=== PATIENT | female | born 1975 | race Caucasian/White ===

== ENCOUNTER 2025-02-04 20:37 | Emergency (ER) | payer BC, SELFPAY ==
[2025-02-04 20:50] VITALS: BP 136/98
[2025-02-04 21:09] LABS: Hematocrit 40.6 % (37.0-47.0); Hemoglobin 14.3 g/dL (12.0-16.0); Mean Corp Hgb Conc. 35.2 g/dL (33.0-37.0); Mean Corpuscular Volume 90.6 fL (81.0-99.0); Nucleated Red Blood Cells % 0 %; Platelet Count 356 10^3/uL (130-400); Red Cell Dist. Width 12.6 % (11.5-14.5)
[2025-02-04 21:32] LABS: ALT (SGPT) 26 U/L (0-35); AST (SGOT) 23 U/L (14-36); Albumin 4.5 g/dl (3.5-5.0); Alkaline Phosphatase 64 U/L (38-126); Blood Urea Nitrogen 10 mg/dl (7-17); Calcium 9.7 mg/dl (8.4-10.2); Carbon Dioxide 19 mmol/L (22-30); Chloride 112 mmol/L (98-107); Glucose 114 mg/dl (70-99); Potassium 3.6 mmol/L (3.5-5.1); Sodium 138 mmol/L (135-145); Total Protein 7.0 g/dl (6.3-8.2); eGFR > 60.00
[2025-02-04 23:44] VITALS: BP 149/100
[2025-02-04 23:49] VITALS: BMI 25.9
[2025-02-05 02:12] VITALS: BP 119/90
[2025-02-05 02:23] LABS: Urine Character Clear (Clear)
[2025-02-05 02:49] LABS: Urine Red Blood Cell None Seen /HPF (0-2); Urine White Cell None Seen /HPF (0-5)
[2025-02-05 03:44] VITALS: BP 119/81
--- NOTE | 2025-02-05 04:04 | ED.GENMED ---
History of Present Illness
General
Chief Complaint: Abdominal Pain
Source: patient
Time Seen by Provider: 02/04/25 23:57
Nursing documentation reviewed up to this point in time: agreed with
History of Present Illness
History of Present Illness:
Note:
CHIEF COMPLAINT(S)
Abdominal pain with nausea and vomiting.
HISTORY OF PRESENT ILLNESS
The patient is a 50-year-old female who presents with right lower quadrant abdominal pain. She reports that the pain started yesterday and was severe, stating she experienced nausea and vomited once. She describes the pain as intermittent and noted
that pressing on the area provided some relief, although releasing the pressure exacerbated the pain. She also indicated a preference for certain positions to alleviate the discomfort. There is no associated dysuria or vaginal bleeding, and she
denies any history of similar pain. The patient denies menstrual cramping and cannot be . She has a history of a tubal ligation and section postoperative course was unremarkable.
PAST SURGICAL HISTORY
Tubal ligation and section.
REVIEW OF SYSTEMS
- Gastrointestinal: Nausea and vomiting, right lower quadrant pain.
- Genitourinary: No dysuria, no vaginal bleeding.
PHYSICAL EXAM
General: Alert, no acute distress.
Skin: Warm, dry.
Head: Normocephalic, atraumatic.
Neck: Supple, trachea midline.
Eye, Ears, Nose, Mouth, and Throat: Oral mucosa moist.
Cardiovascular: Normal peripheral perfusion, no edema.
Respiratory: Respirations are non-labored.
Gastrointestinal: Abdomen tender in the right lower quadrant.
Back: Normal range of motion, normal alignment.
Musculoskeletal: Normal range of motion, normal strength.
Neurological: Alert and oriented to person, place, time, and situation, no focal neurological deficit observed.
Psychiatric: Cooperative, appropriate mood & affect.
PLAN
The plan includes performing a computed tomography (CT) scan of the abdomen to rule out appendicitis. If the CT scan findings are inconclusive, an ultrasound will be performed to evaluate for potential ovarian issues. A urine sample will be obtained
at the patients convenience, as it is not urgently required before the CT scan results.
DIFFERENTIAL DIAGNOSIS
The Differential Diagnosis includes, in no particular order and is not limited to:
1. Appendicitis
2. Ovarian cyst
3. Pelvic inflammatory disease
4. Ectopic
5. Diverticulitis
6. Gastroenteritis
7. Renal colic
8. Inguinal hernia
9. Endometriosis
10. Urinary tract infection
Disposition:
SUMMARY OF ENCOUNTER
30-year-old female presented with right lower quadrant abdominal pain. CT scan of the abdomen was performed and interpreted as negative for acute findings. An ultrasound was also performed and found to be negative. Urine analysis was negative.
Laboratory tests revealed a white blood cell count of 9.8. After evaluation and treatment, the patient reported feeling better.
DISPOSITION
Discharge.
ASSESSMENT
The patients symptoms were assessed, and with negative imaging and lab findings, her condition was deemed appropriate for discharge.
PLAN
The patient will be discharged as her symptoms have improved and there are no acute findings from the imaging and laboratory results.
INDEPENDENT REVIEW OF LABS AND INTERPRETATION OF TESTS
My independent review of the complete blood count (CBC) indicates a white blood cell count of 9.8.
MEDICAL DECISION MAKING
-Complexity of Data Reviewed:
DDx list includes:
1. Appendicitis
2. Ovarian cyst
3. Pelvic inflammatory disease
4. Ectopic
5. Diverticulitis
6. Gastroenteritis
7. Renal colic
8. Inguinal hernia
9. Endometriosis
10. Urinary tract infection
-Data:
Category 1:
- I independently interpreted CT imaging and ultrasound during the patients evaluation.
-Risk:
Consideration of Admission/Observation: Escalation of care including admission/observation was considered given the complexity and risk of the patients presenting complaint, exam findings, and/or their underlying comorbidities. However, ultimately,
I feel the patient is safe for outpatient management with close follow-up. Reasoning: Work-up is reassuring, does not reveal any acute life/organ-threatening processes, the patients symptoms are well controlled upon reevaluation, reexamination is
reassuring, vitals are stable, the patient agrees with discharge, reliable for follow-up.
DIAGNOSIS
- Abdominal pain, R10.9
- Leukocytosis (mild, non-specific finding), R16.8
Review of Systems
Review of Systems
Allergies reviewed?: Yes
All Other Systems: ROS reviewed and negative except as documented in HPI and ROS
Constitutional: Reports no symptoms
EENT: Reports no symptoms
Respiratory: Reports no symptoms
Cardiac: Reports no symptoms
ABD/GI: Reports abdominal pain
: Reports no symptoms
Musculoskeletal: Reports no symptoms
Skin: Reports no symptoms
Neurological: Reports no symptoms
Endocrine: Reports no symptoms
Hematologic/Lymphatic: Reports no symptoms
Psychiatric: Reports no symptoms
Phy Exam
Physical Exam
Physical Exam:
.
Course
Orders/Labs/Results
Orders:
Orders
02/04/25 21:02
Complete Blood Count/With Diff Urgent
Comprehensive Metabolic Panel Urgent
02/05/25 00:03
CT Abd/pelvis W Iv Cont Urgent
Comment:
Reason For Exam: rlq pain
02/05/25 02:12
US Pelvis W Transvag Combined Urgent
Reason For Exam: right pain
02/05/25 02:13
Urinalysis Reflex To Culture Urgent
Date Specimen was Collected: 02/05/25
Time Specimen was Collected: 01:59
Urine Microscopic Reflex Cult Urgent
Abnormal Lab Results
02/04/25 02/05/25
21:02 02:13
MCH 31.9 H pg
(27.0-31.0)
Absolute Lymphs (auto) 3.6 H 10^3/uL
(1.2-3.4)
Chloride 112 H mmol/L
(98-107)
Carbon Dioxide 19 L mmol/L
(22-30)
Glucose 114 H mg/dl
(70-99)
Urine Albumin (Reflex) 1+ A
(Neg - Trace)
02/04/25 21:02
02/04/25 21:02
Vital Signs
Initial and Last Documented VS:
Initial Vital Signs
Temp Pulse Resp BP Pulse Ox
98.1 F 84 20 136/98 96
02/04/25 20:50 02/04/25 20:50 02/04/25 20:50 02/04/25 20:50 02/04/25 20:50
Last Documented Vital Signs
Temp Pulse Resp BP Pulse Ox
97.6 F 70 18 119/81 98
02/04/25 23:44 02/05/25 03:44 02/05/25 03:44 02/05/25 03:44 02/05/25 04:04
*Radiology
Radiology exam reviewed: radiology read reviewed
*Pulse Oximetry
SaO2: 98
Oxygen Mode of Delivery: Room air
Patient hypoxic: no
*Critical Care Note
Total Time (30-74mins, 75-104mins- exclusive of procedures): Not Applicable
Update Note
Update Note:
Preliminary Radiology Report
[facility], [facility] - Phone
[facility]
NAME: MARCOS VASQUEZ
DATE OF EXAM: 02/05/2025
Patient No: [id number]
Physician: KENNETH^Terrance
Date of : 1975
Past Medical History (entered by Technologist):
Reason For Exam (entered by Technologist):
Other Notes (entered by Technologist):
Additional Information (per [facility]):
Pelvic ultrasound
IMPRESSION:
No active torsion.
The results were faxed/finalized only at 0340 ET. If you would like to discuss this case directly please call [phone] (extension [phone]). If you can't reach me at this number, do not leave a voicemail. Please call [phone] ext [phone] and ask for
the next available Radiologist.
Brittney Mi M.D.
This report has been electronically signed and verified by the Radiologist whose name is printed above.
ED Attending Note
-
Portions of this chart may have been created with voice recognition software.� Occasional wrong word or��sound alike� substitutions may have occurred due to the inherent limitations of voice recognition software.
Discharge Plan
Departure
Patient Disposition: Home (Routine Discharge)
Date of Disposition: 02/05/25
Time of Disposition: 04:16
Patient with high blood pressure during this ER visit?: Yes
Condition: Good
Discharge Problem:
Abdominal pain
Instructions: Abdominal Pain, BLOOD PRESSURE
Referrals:
[facility] [Outside]
UNKNOWN - PT DOES,NOT KNOW [Family Provider]
Activity Restrictions/Additional Instructions:
Thank You for choosing [facility].
It was a pleasure meeting you and taking part in your care. We hope for your continued healing and wellness.
Please read discharge instructions in their entirety. However, they are for general education and may not describe your exact diagnosis at discharge. Information on your ER visit and medical conditions were discussed with you along with appropriate
follow up information...
If indicated, please take your medications as instructed and indicated on discharge paperwork.
Please schedule a follow up appointment as directed. Call to schedule an appointment
Please return to the emergency department with ANY change in, persisting, or worsening of symptoms. If any of your symptoms do not improve, or persist, or become more severe within 6-12 hours, please return to the emergency department for further
care.
Please return to the emergency department if you develop a headache, neck pain/stiffness, fever greater than 100.4F, chest pain, shortness of breath, persistent nausea, vomiting, slurred speech, difficulty walking, numbness/tingling, weakness, signs
of infection or any other symptoms that are worrisome to you.
If you have any questions or concerns please do not hesitate to call the Hospital at or E-mail me directly at [email or web address]
Interventions
Interventions:
*Risk Screen - Suicide Last Done: 02/04/25 20:57
*General Assessment Last Done: 02/04/25 23:47
*Neglect/Abuse Screening Last Done: 02/04/25 20:57
*ED- Fall Risk Assessment Last Done: 02/04/25 23:47
*ED COVID-19 Vaccine History Last Done: 02/04/25 23:47
BY-Vsdotm-Chdvrtxchu Assessment Last Done: 02/04/25 23:46
Discharge Date and Time
Print Language: [email or web address]
[2025-02-05 04:36] VITALS: BP 120/80
== END 2025-02-05 04:37 | disposition home or self-care (01) ==
LOC: EMR 20:37
PROVIDERS: Emergency Medicine; EMERGENCY PHYSICIAN Student in an Organized Health Care Education/Training Program
DX: R10.9 Unspecified abdominal pain (principal); R11.2 Nausea with vomiting, unspecified; D72.829 Elevated white blood cell count, unspecified; Z90.49 Acquired absence of other specified parts of digestive tract; Z98.51 Tubal ligation status
CPT/HCPCS: 99284; 74177; 76830; 76856; 80053; 81003; 81015; 85025; Q9967